=== PATIENT | female | born 1955 | race Caucasian/White ===

== ENCOUNTER 2017-02-15 13:00 | Emergency (ER) | payer OTHER ==
[2017-02-15 13:00] VITALS: BP 188/76; PULSE 100; RESP 20; TEMP 98.4; O2SAT 97
[~2017-02-15 13:00] MED LIST: CLON.1 PO; LISI-360 PO; MECL25 PO; METF500 PO; OXYC-68 PO; TRAM50 PO
--- NOTE | 2017-02-15 13:19 | PD ---
HPI Chief Complaint: L Eye Pain Time Seen by Provider: 13:15 Travel History International Travel<30 days: No Contact w/Intl Traveler<30days: No History of Present Illness HPI 61 yo M mechanical fall striking L eye against a door handle lever approx 45 minutes prior to ER arrival. + Loss of vision of L eye. + Pain L eye. Pt suffers with chronic low back pain and took opioids prior to ER arrival and prior to injury. No additional complaints on offer at time of initial exam. No blood thinner. Normally vision is 20/20 bilaterally. No bleeding on scene or en route. Onset sudden. Timing constant. PFSH Past Medical History High Cholesterol: Yes Hypertension: Yes Menopausal: Yes Social History Alcohol Use: No Tobacco Use: No Substance Use: No Allergies-Medications (Allergen,Severity, Reaction): Coded Allergies: No Known Allergies (Unverified , 09/01/14) Reported Meds & Prescriptions Reported Meds & Active Scripts Active Tramadol (Tramadol HCl) 50 Mg Tab 100 Mg PO Q6H PRN Pred Forte Opth 1% (Prednisolone Acetate Opth 1%) 1% Susp 1 Drop LEFT EYE Q2HR 5 Days Combigan Opth Drops (Brimonidine-Timolol Opth Drops) 0.2-0.5% Soln 1 Drop LEFT EYE Q12HR 7 Days Reported Keflex (Cephalexin) 500 Mg Cap 500 Mg PO DAILY Amoxicillin 500 Mg Tab 500 Mg PO BID Zantac (Ranitidine HCl) 150 Mg Tab 150 Mg PO DAILY Xanax (Alprazolam) 0.5 Mg Tab 0.5 Mg PO HS PRN Gabapentin 600 Mg Tab 600 Mg PO TID Lisinopril 40 Mg Tab 40 Mg PO DAILY Review of Systems Except as stated in HPI: all other systems reviewed are Neg General / Constitutional: No: Fever Physical Exam Narrative GENERAL: 61 yo F, WNWD SKIN: Warm and dry. HEAD: Atraumatic. Normocephalic. EYES: Pupil equal round reactive to light. OS: stage IV traumatic hyphema; pt has no vision from the L eye. OD: normal. ENT: No nasal bleeding or discharge. Mucous membranes pink and moist. NECK: Trachea midline. No JVD. CARDIOVASCULAR: Regular rate and rhythm. RESPIRATORY: No accessory muscle use. Clear to auscultation. Breath sounds equal bilaterally. GASTROINTESTINAL: Abdomen soft, non-tender, nondistended. Hepatic and splenic margins not palpable. MUSCULOSKELETAL: Extremities without clubbing, cyanosis, or edema. No obvious deformities. NEUROLOGICAL: Awake and alert. No obvious cranial nerve deficits. Motor grossly within normal limits. Five out of 5 muscle strength in the arms and legs. Normal speech. PSYCHIATRIC: Appropriate mood and affect; insight and judgment normal. Data Data Last Documented VS Vital Signs Date Time Temp Pulse Resp B/P (MAP) Pulse Ox O2 Delivery O2 Flow Rate FiO2 02/15/17 14:06 88 18 154/78 (103) 98 02/15/17 13:00 98.4 VS reviewed Orders Orders Ed Discharge Order (02/15/17 13:40) MDM Medical Decision Making Medical Screen Exam Complete: Yes Emergency Medical Condition: Yes Medical Record Reviewed: Yes Differential Diagnosis traumatic hyphema, open globe, corneal abrasoin Narrative Course pt has traumatic hyphema eyes stained, no abrasion, no open globe d/w Dr Spring, drops as below follow up with Dr Spring on Friday pt verbalized understanding and agreement with plan Diagnosis Primary Impression: Traumatic hyphema of left eye Qualified Codes: S05.12XA - Contusion of eyeball and orbital tissues, left eye , initial encounter Referrals: Marisabel Spring MD 2 days Additional Instructions: CALL DR MARISABEL SPRING ON FRIDAY MORNING TO SCHEDULE AND APPOINTMENT FOR FRIDAY. USE THE PRED FORTE EYE DROP EVERY 2 HOURS. USE THE COMBIGAN DROP EVERY 12 HOURS. Med/Other Pt SpecificInfo: Prescription(s) given Scripts Tramadol (Tramadol) 50 Mg Tab 100 MG PO Q6H Y for PAIN, #20 TAB 0 Refills Prov: Sy Ross MD 02/15/17 Prednisolone Acetate Opth 1% (Pred Forte Opth 1%) 1% Susp 1 DROP LEFT EYE Q2HR for Inflammation for 5 Days, #1 BOTTLE 0 Refills Prov: Sy Ross MD 02/15/17 Brimonidine-Timolol Opth Drops (Combigan Opth Drops) 0.2-0.5% Soln 1 DROP LEFT EYE Q12HR for Glaucoma for 7 Days, BOTTLE 0 Refills Prov: Sy Ross MD 02/15/17 Disposition: 01 DISCHARGE HOME Condition: Stable Sy Ross MD Feb 15, 2017 13:19
[2017-02-15] MEDS ORDERED: CEPH-460 PO (13:32)
[2017-02-15] MEDS ORDERED: GABA600T PO (13:32)
[2017-02-15] MEDS ORDERED: ALPR.5 PO (13:32)
[2017-02-15] MEDS ORDERED: AMOX500T PO (13:32)
[2017-02-15] MEDS ORDERED: LISI40TA PO (13:32)
[2017-02-15] MEDS ORDERED: ZANT150T2 PO (13:32)
[2017-02-15] MEDS ORDERED: COMB0.2S LEFT EYE (13:39)
[2017-02-15] MEDS ORDERED: PRED1SUS LEFT EYE (13:39)
[2017-02-15] MEDS ORDERED: TRAM50TA PO (14:02)
[2017-02-15 14:06] VITALS: BP 154/78
== END 2017-02-15 14:07 | disposition home or self-care (01) ==
LOC: PHED 13:00
DX: S05.12XA Contusion of eyeball and orbital tissues, left eye, initial encounter (principal); I10 Essential (primary) hypertension; G89.29 Other chronic pain; M54.5 Low back pain; W19.XXXA Unspecified fall, initial encounter
CPT/HCPCS: 99284